=== PATIENT | female | born 1980 | race Two or more races ===

== ENCOUNTER 2018-01-14 13:06 | Emergency (ER) | payer MEDICAID ==
--- NOTE | 2018-01-14 14:17 | EDM.PDOC ---
<Brianna Rosales - Last Filed: 01/14/18 13:55> ED HPI GENERAL MEDICAL PROBLEM - General Chief Complaint: Gastrointestinal Problem Stated Complaint: LT SIDE PAIN WITH A BRUISE Time Seen by Provider: 01/14/18 13:21 Source of Information: Reports: Patient History Limitations: Reports: No Limitations - History of Present Illness INITIAL COMMENTS - FREE TEXT/NARRATIVE: Patient felt a sharp pain on her left side one week ago. Three days ago she noticed a small bruise over her LLQ, since that time the bruise has been increasing in size and has grown darker. Patient describes the pain as burning and squeezing. Pain is better with lying supine or lying on her left side. Sitting increases pain as it feels like it increases the pressure in her LLQ. Manipulating the area causes some nausea and increases the burning sensation. Last BM was yesterday and was soft. Patient denies trauma, fever, chills, diarrhea, constipation, dysuria, urinary frequency/urgency, or hematuria. Patient has a history of section with tubal ligation. Patient also had a nephrolithiasis 5-6 years ago. Patient was seen by urgent care earlier today, they performed a UA, labs, and a pelvic exam, all unremarkable. Onset: Gradual Onset Date: 01/11/18 Duration: Getting Worse Location: Reports: Abdomen, Radiates to (Lt flank and back) Quality: Reports: Burning (and squeezine) Severity: Moderate Improves with: Reports: Other (lying back and lying on her left side) Worsens with: Reports: Other (sitting) Associated Symptoms: Reports: No Other Symptoms. Denies: Chest Pain, Fever/ Chills, Nausea/Vomiting Left Abdomen Pain Score (Numeric/FACES): 5 - Related Data Allergies Allergy/AdvReac Type Severity Reaction Status Date / Time No Known Allergies Allergy Verified 01/14/18 13:20 Home Meds: Home Meds . 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 Denies: Constipation, Diarrhea, Melena, Vomiting : Reports: Flank Pain. Denies: Frequency, Hematuria, Incontinence, Pain, Urgency Skin: Reports: Diaphoresis, Bruising. Denies: Jaundice, Rash, Erythema, Wound, Lesions ED EXAM, GI/ABD - Physical Exam Exam Limited By: No Limitations General Appearance: Alert, WD/WN, No Apparent Distress Respiratory/Chest: No Respiratory Distress, Lungs Clear, Normal Breath Sounds, No Accessory Muscle Use, Chest Non-Tender Cardiovascular: Normal Peripheral Pulses, Regular Rate, Rhythm, No Edema, No Gallop, No Murmur, No Rub GI/Abdominal Exam: Normal Bowel Sounds, Soft, No Distention, No Mass, Tender. No: Distended, Guarding, Rigid, Rebound, Hepatomegaly Back Exam: Normal Inspection Course - Vital Signs Last Recorded V/S: Last Vital Signs Temp 97.2 F 01/14/18 13:20 Pulse 56 L 01/14/18 13:20 Resp 16 01/14/18 13:20 BP 105/81 01/14/18 13:20 Pulse Ox 98 01/14/18 13:20 - Orders/Labs/Meds Orders: Active Orders 24 hr Category Date Time Status Abdomen Pelvis wo Cont [CT] Stat Exams 01/14/18 13:47 Taken Departure - Departure Disposition: Home, Self-Care 01 Clinical Impression: Abdominal wall seroma Qualifiers: Encounter type: initial encounter Qualified Code(s): T88.8XXA - Other specified complications of surgical and medical care, not elsewhere classified, initial encounter; T79.2XXA - Traumatic secondary and recurrent hemorrhage and seroma, initial encounter Umbilical hernia Qualifiers: Obstruction and gangrene presence: without obstruction or gangrene Qualified Code(s): K42.9 - Umbilical hernia without obstruction or gangrene - Discharge Information Referrals: PCP,None [Primary Care Provider] - Jairo Che MD [Physician] - 1 Week Forms: ED Department Discharge Additional Instructions: Do not do anything strenuous for a few days. Put some warm compresses on the wound 2 times per day. Please return if you are worse and follow up with Dr Che if you are not better in 1 week. - My Orders Last 24 Hours: My Active Orders 01/14/18 13:47 Abdomen Pelvis wo Cont [CT] Stat - Assessment/Plan Last 24 Hours: My Active Orders 01/14/18 13:47 Abdomen Pelvis wo Cont [CT] Stat <LolyNed Pink - Last Filed: 01/14/18 15:19> ED ROS GENERAL - Review of Systems Review Of Systems: See Below ED EXAM, GI/ABD - Physical Exam Exam: See Below Course - Re-Assessments/Exams Free Text/Narrative Re-Assessment/Exam: 01/14/18 15:12 I examined the patient myself and I agree with Brianna's plan and assessment. Her CBC looks good. Her CMP looks good. Her UA shows no UTI or blood. I did a CT of her abdomen and pelvis and it showed possible 2cm seroma or hematoma in the left anterior subcutaneous abdominal region. Small fat-containing periumbilical hernia. I am not sure why she has this. She has no history of trauma. 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 I will give her something for pain and have her follow up with Dr Che. Her platelets were normal. Departure - Departure Time of Disposition: 15:20 Condition: Good
--- NOTE | 2018-01-16 08:26 | CT ---
CT abdomen and pelvis Technique: Multiple axial sections were obtained from above the dome of the diaphragm inferiorly through the pubic symphysis. Intravenous and oral contrast was not utilized. Study has been performed as a ureteral stone protocol. Comparison: No prior CT exams. Findings: Kidneys show no abnormal calcifications. No ureteral dilatation or ureteral stone is seen. Visualized lung bases show nothing acute. Noncontrast appearance of the liver and spleen appear within normal limits. Adrenal glands show no nodule. Pancreas is within normal limits. Gallbladder contains no calcified gallstones. Aorta shows no aneurysmal dilatation. No retroperitoneal adenopathy is seen. Appendix is seen which is normal in size. No pelvic mass or adenopathy is seen. Fat-containing umbilical hernia is noted. Mild increased density is seen within the subcutaneous fat within the left lower abdomen with small fluid collection measuring about 1.8 cm being seen in this area possibly due to small old seroma. Bone window settings were reviewed which appear within normal limits for the patient's age. Impression: 1. Slight increased density within the subcutaneous fat of the left lower abdomen most likely due to scarring. Probable small 1.8 cm seroma in this area also noted. 2. Small fat-containing umbilical hernia. 3. No renal calculi, ureteral dilatation or ureteral stone is seen. Diagnostic code #2 I agree with preliminary report from [facility], finalized at 01/14/18, 3:51 PM Central Time
== END 2018-01-14 15:25 | disposition home or self-care (01) ==
LOC: JD.ED 13:06
DX: T88.8XXA Other specified complications of surgical and medical care, not elsewhere classified, initial encounter (principal); K42.9 Umbilical hernia without obstruction or gangrene
CPT/HCPCS: 74176; 74176-26; 99284-25